=== PATIENT | male | born 1990 | race Caucasian/White ===

== ENCOUNTER 2023-02-13 17:27 | Emergency (ER) | payer MEDICAID ==
[~2023-02-13] VITALS: Ht 157.5 cm; Wt 83.0 kg
[2023-02-13 17:38] VITALS: BP 131/79; PULSE 72; RESP 20; TEMP 98.5; O2SAT 97
[2023-02-13] MEDS ORDERED: KETOROLAC 30 MG/ML VIAL IVP ONE (18:55)
--- NOTE | 2023-02-13 19:00 | NUR ---
PT WENT TO BED 11
--- NOTE | 2023-02-13 19:15 | NUR ---
PT REFUSED THE MEDICATION IV AND WANTED TO GET ORAL MED INSTEAD. NOTIFIED.
[2023-02-13 19:25] LABS: BASOPHILS % (AUTO) 0.5 % (0.0-2.0); EOSINOPHILS # (AUTO) 0.1 K/uL (0-0.4); EOSINOPHILS % (AUTO) 0.8 % (0.0-4.0); HEMOGLOBIN 14.8 g/dL (12.0-18.0); LYMPHOCYTES # (AUTO) 1.2 K/uL (2.0-11.5); LYMPHOCYTES % (AUTO) 16.2 % (20.5-51.1); MEAN CORPUSCULAR HEMOGLOBIN 30 pg (27-31); MEAN CORPUSCULAR HGB CONC 34 g/dL (33-37); MEAN CORPUSCULAR VOLUME 87.4 fL (80-94); MONOCYTES # (AUTO) 0.5 K/uL (0.8-1.0); MONOCYTES % (AUTO) 6.8 % (1.7-9.3); NEUTROPHILS # (AUTO) 5.4 K/uL (1.8-7.7); NEUTROPHILS % (AUTO) 75.7 % (42.2-75.2); PLATELET COUNT (AUTO) 250 K/uL (140-450); RED BLOOD CELL COUNT(AUTO) 4.92 MIL/uL (4.20-6.10); RED CELL DISTRIBUTION WIDTH 14.2 % (11.6-13.7); WHITE BLOOD COUNT (AUTO) 7.2 K/uL (4.8-10.8)
[2023-02-13 19:40] LABS: APPEARANCE,URINE CLEAR (CLEAR); BILIRUBIN,URINE NEGATIVE (NEGATIVE); BLOOD, URINE 3+ (NEGATIVE); COLOR,URINE YELLOW (YELLOW); LEUKOCYTE ESTERASE ,URINE NEGATIVE (NEGATIVE); NITRITE, URINE NEGATIVE (NEGATIVE); UGLUCOSE NEGATIVE (NEGATIVE)
--- NOTE | 2023-02-13 19:40 | NUR ---
Pt went to CT
[2023-02-13 19:45] LABS: ALBUMIN 3.8 g/dL (3.4-5.0); ANION GAP 13.8 (8-16); CARBON DIOXIDE 25.6 mmol/L (21-32); CREATININE 0.9 mg/dL (0.6-1.3); POTASSIUM 3.4 mmol/L (3.5-5.1); TOTAL BILIRUBIN 0.3 mg/dL (0.0-1.0)
[2023-02-13 19:58] LABS: RBC,URINE 20-50 /HPF (0-5); YEAST,URINE None Seen /HPF (None Seen)
[2023-02-13] MEDS ORDERED: IBUPROFEN 400 MG TAB PO ONE (20:05)
[2023-02-13] MEDS ORDERED: ACETAMINOPHEN EXTRA STRENGTH 500 MG TAB PO ONE (20:05)
[2023-02-13] MEDS: NACL 0.9% 1,000 ML IV SCH ×2 (20:10→20:11)
--- NOTE | 2023-02-13 21:40 | NUR ---
father at the bedside
[2023-02-13 21:50] VITALS: BP 125/65; PULSE 72; RESP 20; TEMP 98.5; O2SAT 97
--- NOTE | 2023-02-13 21:50 | NUR ---
pt was discharged by DR. Demarco.
--- NOTE | 2023-02-13 21:56 | NUR ---
Patient discharged with v/s stable. Written and verbal after care instructions given and explained. Patient verbalized understanding. Ambulatory with steady gait. All questions addressed prior to discharge. Advised to follow up with PMD. pt left with his belongings and accompany by his father
== END 2023-02-13 21:56 | disposition home or self-care (01) ==
LOC: MED 17:27
DX: N23 Unspecified renal colic (principal); Z79.899 Other long term (current) drug therapy
CPT/HCPCS: 36415; 80053; 81001; 85025; 99284; J1885